=== PATIENT | female | born 2000 | race African-American/Black ===

== ENCOUNTER 2021-03-04 12:27 | Emergency (ER) | payer OTHER, SELFPAY ==
[2021-03-04] MEDS ORDERED: Boostrix 0.5 ML (Tdap) VIAL ONE ×2 (12:32)
[2021-03-04] MEDS ORDERED: HYDROcodone/Acetaminophen 5/325 mg Tablet ONE (12:42)
[2021-03-04] MEDS ORDERED: Ketorolac Tromethamine 30 MG/ML VIAL ONE (12:45)
[2021-03-04] MEDS ORDERED: Bacitracin 1 PK ONE (13:45)
== END 2021-03-04 14:00 | disposition home or self-care (01) ==
LOC: NAV ERS 12:27
DX: T23.201A Burn of second degree of right hand, unspecified site, initial encounter (principal); T23.131A Burn of first degree of multiple right fingers (nail), not including thumb, initial encounter; X08.8XXA Exposure to other specified smoke, fire and flames, initial encounter
CPT/HCPCS: 16020; 90471; 90715; 96372; J1885

== ENCOUNTER 2022-05-01 08:40 | Emergency (ER) | payer SELFPAY ==
[2022-05-01 09:52] LABS: Wet Prep Clue Cells Clue Cells PRESENT (None Seen); Wet Prep Trichomonas Trichomonas Absent (None Seen)
[2022-05-02 14:13] LABS: Chlamydia by PCR Not Detected (NotDetected); GC by PCR Not Detected (NotDetected)
== END 2022-05-01 10:15 | disposition home or self-care (01) ==
LOC: NAV ERS 08:40
DX: N76.0 Acute vaginitis (principal); H92.03 Otalgia, bilateral
CPT/HCPCS: 87210; 87480; 87491; 87510; 87591; 87660; 99283